=== PATIENT | female | born 1960 | race Caucasian/White ===

== ENCOUNTER 2020-08-13 09:24 | Emergency (ER) | payer OTHER ==
[~2020-08-13] VITALS: Ht 162.6 cm; Wt 84.5 kg
[2020-08-13 09:44] VITALS: BP 144/83
--- NOTE | 2020-08-13 09:51 | PHYS DOC ---
General Adult EDM: Chief Complaint: CHEST PAIN HPI: HPI: Patient is a 60-year-old female sent from urgent care for evaluation of chest pain. Patient states for the past 3 days she has felt like something is sitting on her chest. This morning it radiated to the back. Says she has felt clammy a couple of times. About 3 or 4 days ago she states she took a Mucinex as she felt she was getting a cold but has not had any fevers or cough since. Denies any shortness of breath, nausea, vomiting, diarrhea. Has a history of hypothyroid is taking levothyroxine but has no other medical conditions. There is a family history of melanoma who has bypass surgery and aorta surgery. Patient does not smoke and rarely drinks alcohol. Denies any drug use. Review of Systems: Review of Systems: All other systems within normal limits except for as noted in the HPI Allergies: Allergies: Allergies Coded Allergies Type Severity Reaction Last Updated Verified No Known Drug Allergies 08/13/20 No Physical Exam: PE: Constitutional: Well developed, well nourished, no acute distress, non-toxic appearance. [] HENT: Normocephalic, atraumatic, bilateral external ears normal, nose normal. [] Eyes: PERRLA, conjunctiva normal, no discharge. [] Neck: No rigidity, supple, no stridor. [] Cardiovascular: Regular rate and rhythm, brisk cap refill [] Lungs & Thorax: Non labored symmetric respirations, no tachypnea or respiratory distress [] Abdomen: Soft, nondistended. Skin: Warm, dry, no erythema, no rash. [] Back: Unremarkable Extremities: No deformities, range of motion grossly intact, no lower extremity edema [] Neurologic: Alert and oriented X 3, no focal deficits noted. [] Psychologic: Affect normal, judgement normal, mood normal. [] EKG: EKG: Sinus rhythm, borderline left axis deviation, no ST elevation depression, no ectopy, normal intervals. T waves unremarkable [] Radiology/Procedures: Radiology/Procedures: PA and lateral chest. HISTORY: Chest pain PA and lateral views were taken of the chest. Lungs are free of infiltrates. Heart is normal in size. There is no pleural effusion. IMPRESSION: 1. No acute chest disease. [] Heart Score: HEART Score for Chest Pain: HEART Score for Chest Pain Response (Comments) Value History Moderately Suspicious 1 ECG Normal 0 Age >45 - < 65 1 Risk Factors No Risk Factors 0 Troponin < Normal Limit 0 Total 2 Risk Factors: Risk Factors: DM, Current or recent (<one month) smoker, HTN, HLP, family history of CAD, obesity. Risk Scores: Score 0 - 3: 2.5% MACE over next 6 weeks - Discharge Home Score 4 - 6: 20.3% MACE over next 6 weeks - Admit for Clinical Observation Score 7 - 10: 72.7% MACE over next 6 weeks - Early Invasive Strategies Course & Med Decision Making: Course & Med Decision Making Pertinent Labs and Imaging studies reviewed. (See chart for details) [] Dragon Disclaimer: Dragon Disclaimer: This electronic medical record was generated, in whole or in part, using a voice recognition dictation system. Departure Departure: Impression: Primary Impression: Chest pain Disposition: 01 DC HOME SELF CARE/HOMELESS Condition: STABLE Referrals: GUILHERME TREVINO (PCP) Patient Instructions: Chest Pain (Nonspecific) COLE VALDES MD Aug 13, 2020 09:51
--- NOTE | 2020-08-13 10:01 | EKG ---
[address] [address] Test Date: 2020-08-13 Test Time: 09:54:53 Pat Name: JESSICA CLEMENTE Department: Room: Gender: F Med Surg Nurse: : [id number] Requested By: COLE VALDES Order Number: [id number] Reading MD: Joel Rose Measurements Intervals [place] Rate: 67 P: 39 WI: 156 QRS: -8 QRSD: 82 T: 49 QT: 390 QTc: 415 Interpretive Statements SINUS RHYTHM LEFTWARD AXIS QRS(T) CONTOUR ABNORMALITY CONSIDER ANTEROSEPTAL MYOCARDIAL DAMAGE Electronically Signed On 08-15-2020 10:05:36 [employer] PERSON by Joel Rose
--- NOTE | 2020-08-13 10:15 | RAD ---
PA and lateral chest. HISTORY: Chest pain PA and lateral views were taken of the chest. Lungs are free of infiltrates. Heart is normal in size. There is no pleural effusion. IMPRESSION: 1. No acute chest disease. Electronically signed by: Misael Dwyer MD (08/13/2020 10:13 AM) [facility]
[2020-08-13 10:32] LABS: BASO # 0.1 x10^3/uL (0.0-0.2); BASO % 1 % (0-3); EOS # 0.3 x10^3/uL (0.0-0.7); EOS % 7 % (0-3); HEMOGLOBIN 13.8 g/dL (12.0-15.5); LYMPH # 1.5 x10^3/uL (1.0-4.8); LYMPH % 34 % (24-48); MEAN CORPUSCULAR HEMOGLOBIN 30 pg (25-35); MEAN CORPUSCULAR HGB CONC 33 g/dL (31-37); MEAN CORPUSCULAR VOLUME 91 fL (79-100); MONO # 0.4 x10^3/uL (0.0-1.1); MONO % 9 % (0-9); NEUT # 2.1 x10^3uL (1.8-7.7); NEUT % 48 % (31-73); PLATELET COUNT 216 x10^3/uL (140-400); RED BLOOD COUNT 4.64 x10^6/uL (3.50-5.40); RED CELL DISTRIBUTION WIDTH 13.3 % (11.5-14.5); WHITE BLOOD COUNT 4.4 x10^3/uL (4.0-11.0)
[2020-08-13 10:37] LABS: CALCIUM 9.1 mg/dL (8.5-10.1); CREATININE 0.8 mg/dL (0.6-1.0); GFR 73.2; POTASSIUM 4.3 mmol/L (3.5-5.1)
[2020-08-13 10:49] LABS: ALBUMIN 3.8 g/dL (3.4-5.0); ALBUMIN/GLOBULIN RATIO 1.1 (1.0-1.7); TOTAL BILIRUBIN 0.6 mg/dL (0.2-1.0); TOTAL PROTEIN 7.4 g/dL (6.4-8.2)
== END 2020-08-13 11:39 | disposition home or self-care (01) ==
LOC: ER 09:24
DX: R07.89 Other chest pain (principal)
CPT/HCPCS: 36415; 71046; 80053; 83690; 83880; 84484; 85025; 85379; 93005; 99285

== ENCOUNTER → 2020-08-18 | Outpatient (CLI) | payer OTHER ==
[2020-08-13 09:44] VITALS: BP 144/83
--- NOTE | 2020-08-18 17:05 | RAD ---
EXAM: PA, oblique and lateral views of the right hand DATE: 08/18/2020 4:24 PM INDICATION: Reason: RIGHT HAND PAIN; DOG BITE / Spl. Instructions: / History: COMPARISON: No Prior FINDINGS: Diffuse soft tissue swelling at the dorsal aspect of the right hand consistent with provided history of dogbite. No definite retained radiopaque foreign body. No erosive/destructive change or periostiti s. IMPRESSION: Soft tissue swelling dorsally without underlying bony abnormality. Electronically signed by: Steven High MD (08/18/2020 5:02 PM) [id number]
== END ==
LOC: RAD 16:05
PROVIDERS: ATTEND Nurse Practitioner Family
DX: M79.89 Other specified soft tissue disorders (principal); M79.641 Pain in right hand
CPT/HCPCS: 73130